=== PATIENT | female | born 1985 | race Caucasian/White ===

== ENCOUNTER 2019-11-30 02:16 | Inpatient (IN) | payer OTHER ==
[~2019-11-30] VITALS: Ht 137.2 cm; Wt 64.1 kg
[2019-11-30] VITALS (18 sets, daily range): BP systolic 92–146; BP diastolic 48–92; PULSE 67–90; TEMP 97.9–98.8
[~2019-11-30 02:16] MED LIST: MOTRIN 600600 MG/TAB PO; PERCOCET 325 MG1 TA2 PO; PRENATAL1 TA1 PO
[2019-11-30] MEDS ORDERED: PRENATAL MVI (02:51)
--- NOTE | 2019-11-30 05:00 | NUR ---
0230- Patient ambulatory to [facility]4 from ED with boyfriend, Bogdan. Patient oriented to room. Patient into restroom to change into clean gown. 0238- EFM and TOCO on and tracing. Patient reports leaking of fluid started at 0145. Patient states fluid was clear and never had a large gush. Patient denies bleeding or spotting. Patient reports good movement. Patient is a repeat section. Assessment completed. 0245- Amniotrace positive. Unable to reach cervix for SVE. 0255- See Physician Notification. 0259- [employer]PORATE PIL[employer] notified. 0300- Patient prepped for repeat section. IV started. Labs drawn and sent. VSS. 0315- on unit. 0330- Patient ambulatory to OR. 0358- Delivery of baby boy. NB care assumed by DOMINICK Mccormick. 0440- PACU. 0515- PP Recovery.
[2019-11-30 06:10] LABS: BASO % 0.4 % (0.0-2.0); EOS # 0.1 (0.0-0.7); EOS % 1.2 % (0-4.0); GRAN # 4.9 (1.4-6.5); GRAN % 62.4 % (42.2-75.2); HEMOGLOBIN 13.3 g/dl (12.5-16.0); LYMPH # 2.2 (1.2-3.4); LYMPH % 28.6 % (20.0-51.0); MEAN CELL VOLUME 83 fl (80.0-100.0); MEAN CORPUSCULAR HEMOGLOBIN 28 pg (27.0-31.0); MEAN CORPUSCULAR HGB CONC 34 g/dl (33.0-37.0); MEAN PLATELET VOLUME 10.8 fl (7.4-10.4); MONO # 0.5 (0.1-0.6); MONO % 6.8 % (1.7-9.3); PLATELET COUNT 223 K/mm3 (130-400); RED BLOOD COUNT 4.69 M/mm3 (4.10-5.30); REDCELL DISTRIBUTION WIDTH-CV 13.6 % (11.5-14.5)
--- NOTE | 2019-11-30 07:30 | NUR ---
0730- Pericare completed. Chux changed, peripad under Pt. Binder on. Pt tolerated well.
[2019-12-01 07:07] LABS: HEMATOCRIT 32.5 % (37.0-47.0); HEMOGLOBIN 10.9 g/dl (12.5-16.0)
[2019-12-01] MEDS ORDERED: IBU600 MG PO (08:42)
[2019-12-01] MEDS ORDERED: PERCOCET 325 MG1 TA2 PO (08:43)
[2019-12-01 09:20] VITALS: BP 120/78; PULSE 91; TEMP 98
--- NOTE | 2019-12-01 11:43 | NUR ---
Initial visit; Mom thanked [employer] for offering congratulations and God's blessings for the of her son. [employer] thanked Mom for choosing [facility].
[2019-12-01 16:29] VITALS: BP 99/68; PULSE 84
[2019-12-01 20:00] VITALS: BP 110/70; PULSE 80; TEMP 98.4
[2019-12-02 04:30] VITALS: BP 120/77; PULSE 88; TEMP 98.4
[2019-12-02 08:30] VITALS: BP 107/78; PULSE 84; TEMP 98
== END 2019-12-02 10:30 | disposition home or self-care (01) | DRG 788 ==
LOC: LDRO 02:16 → OB 03:00 → LDR 03:00 → OB 04:30
PROVIDERS: Obstetrics & Gynecology; ADMIT Obstetrics & Gynecology
PROC: 10D00Z1 Extraction of Products of Conception, Low, Open Approach (ICD-10-PCS; principal; 2019-11-30)
DX: O34.211 Maternal care for low transverse scar from previous cesarean delivery (principal); O42.913 Preterm premature rupture of membranes, unspecified as to length of time between rupture and onset of labor, third trimester; O24.420 Gestational diabetes mellitus in childbirth, diet controlled; Z23 Encounter for immunization; Z37.0 Single live birth; Z3A.36 36 weeks gestation of pregnancy
CPT/HCPCS: J0690; J1885; J2370; J2405; J2590; J3010; J7120